=== PATIENT | male | born 1980 ===

== ENCOUNTER 2020-12-02 09:34 | Emergency (ER) | payer BC, OTHER ==
[~2020-12-02] VITALS: Ht 162.6 cm; Wt 62.7 kg
[~2020-12-02 09:34] MED LIST: ALBUTEROL0.09 MG/A1 IH; NO HOME MEDICATIONS; ZITHROMAX 250M250 MG PO
[2020-12-02 09:40] VITALS: BP 123/82; PULSE 71; TEMP 98.4
== END 2020-12-02 10:16 | disposition home or self-care (01) ==
LOC: COL.ER 09:34
DX: S61.217A Laceration without foreign body of left little finger without damage to nail, initial encounter (principal); W26.0XXA Contact with knife, initial encounter

== ENCOUNTER → 2020-12-22 | Outpatient (REF) | payer OTHER ==
[~2020-12-22] VITALS: Ht 152.4 cm; Wt 54.5 kg
[2020-12-22 15:33] LABS: HIV 1/2 Antibodies Non-Reactive; HIV-1p24 Antigen Non-Reactive
[2020-12-22 18:50] VITALS: BP 129/89; PULSE 63; TEMP 98.1
== END ==
LOC: COL.EMP 13:24 → COL.ER 13:24
PROVIDERS: Physician Assistant
DX: S61.230A Puncture wound without foreign body of right index finger without damage to nail, initial encounter (principal); W46.1XXA Contact with contaminated hypodermic needle, initial encounter